=== PATIENT | male | born 2000 | race Caucasian/White ===

== ENCOUNTER 2023-04-18 01:42 | Inpatient (IN) | payer BC, SELFPAY ==
[2023-04-18 01:43] VITALS: BP 128/70; PULSE 56; RESP 16; TEMP 37.3; O2SAT 96; BMI 29.2
[2023-04-18 01:59] LABS: Add Urine Microscopic? NO; Charge for UA Resulting for Rev
[2023-04-18 02:02] LABS: Bilirubin Urine Neg (Negative); Blood Urine Neg (Negative); Glucose Urine UA Norm (Normal); Ketones Urine Negative (Negative); Leukocyte Esterase Urine Negative (Negative); Nitrate Urine Negative (Negative); Protein Urine Neg (Negative); Urine Appearance Clear (CLEAR); Urine Color Yellow (Yellow); Urobilinogen Urine Norm (Negative); pH Urine 6 (5-7)
[2023-04-18 02:08] LABS: Basophils # 0.1 10^3/uL (0.0-0.1); Basophils % 0.6 %; Eosinophils # 0.2 10^3/uL (0.0-0.8); Eosinophils % 1.5 %; Lymphocytes # 3.3 10^3/uL (0.8-4.8); Lymphocytes % 27.1 %; Mean Corpuscular Volume 85.7 fl (82-101); Mean Platelet Volume 10.7 fL (7.4-10.4); Monocytes % 7.8 %; Neutrophils # 7.73 10^3/uL (1.8-7.7); Neutrophils % 62.7 %; Nucleated Red Blood Cells % 0 %; Platelet Count 225 10^3/cmm (157-399); Red Blood Count 5.37 10^6/uL (3.85-5.65); Red Cell Distribution Width 13.2 % (12.1-15.1); White Blood Count 12.33 10^3/uL (3.29-11.43)
[2023-04-18 02:09] LABS: Amphetamines Screen Urine Negative (Negative); Barbiturates Screen Urine Negative (Negative); Benzodiazepines Screen Urine Negative (Negative); Cocaine Screen Urine Negative (Negative); Opiate Screen Urine Negative (Negative); PCP Screen Urine Negative (Negative); THC Screen Urine Negative (Negative)
--- NOTE | 2023-04-18 02:12 | ED.C_ITS ---
HPI - Psych General: Chief Complaint: Psychiatric Symptoms Stated Complaint: SI Time Seen by Provider: 04/18/23 01:48 History of Present Illness: Patient presents to the ER by EMS with complaints of suicidal ideation and self- harm. Patient states he put a knife to his arm and has a small scratch inside his left AC space. Patient says that he is afraid that he will actually go thr ough with that this. Patient is agreeable for inpatient treatment. Patient is not currently on any medications nor has he been in our system previously. Review of Systems General: Reports: 10 or more systems reviewed and unremarkable except in HPI and below Physical Exam Const: COMMON NORMALS: no acute distress, average body habitus, patient oriented x3, no limitations, healthy appearing, alert and well nourished HENMT: COMMON NORMALS: normocephalic, atraumatic, hearing grossly normal bilaterally, external ears normal, Normal external nose present and moist oral mucous membranes HEAD & SCALP: normocephalic and atraumatic NOSE: Normal external nose present EXTERNAL EAR: Yes external ears normal Eye: COMMON NORMALS: Equal, round and reactive pupils present, EOMs intact bilaterally, conjunctivae normal and no scleral icterus CONJUNCTIVA: Yes conjunctivae normal PUPIL: Yes Equal, round and reactive pupils present Neck/C-Spine: COMMON NORMALS: full ROM, no lymphadenopathy, supple, no meningeal signs, no JVD and Thyroid normal THYROID: Thyroid normal Lymph: LYMPHATIC: no lymphadenopathy noted Chest: COMMONS NORMALS: normal inspection of the chest and normal palpation of entire chest wall Resp: COMMON NORMALS: normal respiratory effort, No retractions, No use of accessory muscles and clear to auscultation bilaterally AUSCULTATION: clear to auscultation bilaterally Cardio: COMMON NORMALS: no JVD, regular rate, regular rhythm, S1 normal heart sound present, S2 normal heart sound present, No gallops present (Cardio), No clicks present (Cardio), No murmurs present (Cardio) and No rub (Cardio) RATE: regular rate RHYTHM: regular rhythm HEART SOUNDS: S1 normal heart sound present and S2 normal heart sound present GI: COMMON NORMALS: Normal to inspection, nondistended, normoactive bowel sounds present, Soft to palpation, non-tender, No hepatosplenomegaly present and no masses PALPATION: Yes Soft to palpation and Yes No hepatosplenomegaly present Neuro: COMMON NORMALS: patient oriented x3 SENSORIUM/ORIENTATION: Yes alert MENINGEAL SIGNS: Yes no meningeal signs Course Vital Signs: Vital signs: Vital Signs Temperature 99.1 F 04/18/23 01:43 Pulse Rate 56 L 04/18/23 01:43 Respiratory Rate 16 04/18/23 01:43 Blood Pressure 128/70 04/18/23 01:43 Pulse Oximetry 96 04/18/23 01:43 Oxygen Delivery Me thod Room Air 04/18/23 01:43 MDM - Psych Medical Decision Making Patient presents ER with suicidal ideation. Physical exam was performed lab work was obtained once medically cleared anticipate admission to the MPU for psychiatric evaluation Differential Diagnosis Likely suicidal ideation; Unlikely acute psychosis, chronic schizophrenia, bipolar disorder, depression or acute anxiety Medical Records I reviewed the patient's medical records. Lab Data I reviewed the patient's lab results. 04/18/23 02:00 04/18/23 02:00 Laboratory Results WBC 12.33 10^3/uL (3.29-11.43) H 04/18/23 02:00 RBC 5.37 10^6/uL (3.85-5.65) 04/18/23 02:00 Hgb 16.10 g/dL (11.27-16.99) 04/18/23 02:00 Hct 46.0 % (37-53) 04/18/23 02:00 MCV 85.7 fl (82-101) 04/18/23 02:00 MCH 30.0 pg (27-33) 04/18/23 02:00 MCHC 35.0 g/dL (30-55) 04/18/23 02:00 RDW 13.2 % (12.1-15.1) 04/18/23 02:00 Plt Count 225 10^3/cmm (157-399) 04/18/23 02:00 MPV 10.7 fL (7.4-10.4) H 04/18/23 02:00 Neut % (Auto) 62.7 % 04/18/23 02:00 Lymph % (Auto) 27.1 % 04/18/23 02:00 [place] % (Auto) 7.8 % 04/18/23 02:00 Eos % (Auto) 1.5 % 04/18/23 02:00 Baso % (Auto) 0.6 % 04/18/23 02:00 Neut # (Auto) 7.73 10^3/uL (1.8-7.7) H 04/18/23 02:00 Lymph # (Auto) 3.3 10^3/uL (0.8-4.8) 04/18/23 02:00 [place] # (Auto) 1.0 10^3/uL (0.2-0.9) H 04/18/23 02:00 Eos # (Auto) 0.2 10^3/uL (0.0-0.8) 04/18/23 02:00 Baso # (Auto) 0.1 10^3/uL (0.0-0.1) 04/18/23 02:00 Nucleated RBC % (auto) 0 % 04/18/23 02:00 Nucleated RBCs # 0.0 /100WBC 04/18/23 02:00 Sodium 143 mmol/L (136-145) 04/18/23 02:00 Potassium 3.6 mmol/L (3.5-5.1) 04/18/23 02:00 Chloride 105 mmol/L (98-107) 04/18/23 02:00 Carbon Dioxide 29 mmol/L (22-29) 04/18/23 02:00 Anion Gap 12.6 (5-19) 04/18/23 02:00 BUN 13 mg/dL (6-20) 04/18/23 02:00 Creatinine 0.8 mg/dL (0.7-1.2) 04/18/23 02:00 GFR Calculation 120.9 mL/min (90-130) 04/18/23 02:00 Glucose 92 mg/dL (65-115) 04/18/23 02:00 Calculated Osmolality 296 mOsm/kg (285-295) H 04/18/23 02:00 Calcium 9.3 mg/dL (8.5-10.5) 04/18/23 02:00 Total Bilirubin 0.2 mg/dL (0.15-1.2) 04/18/23 02:00 AST 19 U/L (0-40) 04/18/23 02:00 ALT 25 U/L (0-41) 04/18/23 02:00 Alkaline Phosphatase 70 U/L (40-130) 04/18/23 02:00 Total Protein 7.3 g/dL (6.6-8.7) 04/18/23 02:00 Albumin 4.6 g/dL (3.5-5.2) 04/18/23 02:00 Globulin 2.7 g/dL (1.3-4.6) 04/18/23 02:00 TSH 2.70 uIU/mL (0.27-4.20) 04/18/23 02:00 Urine Color Yellow (Yellow) 04/18/23 01:53 Urine Appearance Clear (CLEAR) 04/18/23 01:53 Urine pH 6 (5-7) 04/18/23 01:53 Ur Specific [place] 1.020 (1.005-1.030) 04/18/23 01:53 Urine Protein Neg (Negative) 04/18/23 01:53 Urine Glucose (UA) Norm (Normal) 04/18/23 01:53 Urine Ketones Negative (Negative) 04/18/23 01:53 Urine Blood Neg (Negative) 04/18/23 01:53 Urine Nitrate Negative (Negative) 04/18/23 01:53 Urine Bilirubin Neg (Negative) 04/18/23 01:53 Urine Urobilinogen Norm mg/dL (Negative) 04/18/23 01:53 Ur Leukocyte Esterase Negative (Negative) 04/18/23 01:53 Salicylates < 0.3 mg/dL (3-10) L 04/18/23 02:00 Urine Opiates Screen Negative ng/mL (Negative) 04/18/23 01:53 Acetaminophen < 5.0 ug/mL (10-30) L 04/18/23 02:00 Ur Barbiturates Screen Negative ng/mL (Negative) 04/18/23 01:53 Ur Phencyclidine Scrn Negative ng/mL (Negative) 04/18/23 01:53 Ur Amphetamines Screen Negative ng/mL (Negative) 04/18/23 01:53 U Benzodiazepines Scrn Negative ng/mL (Negative) 04/18/23 01:53 Urine Cocaine Screen Negative ng/mL (Negative) 04/18/23 01:53 U Marijuana (THC) Screen Negative ng/mL (Negative) 04/18/23 01:53 Ethyl Alcohol < 10 mg/dL (0-10) 04/18/23 02:00 Discharge Plan Discharge Patient Disposition: Admitted As Inpatient Clinical Impression: Suicidal ideation Condition: Stable Prescriptions: No Action No Known Home Medications Referrals: Francie Negro [Primary Care Provider] - Coding Level of Care Code ED Sighter for Katarina Wilkinson
[2023-04-18 02:40] LABS: Alanine Aminotransferase 25 U/L (0-41); Albumin Level 4.6 g/dL (3.5-5.2); Alkaline Phosphatase 70 U/L (40-130); Aspartate Amino Transferase 19 U/L (0-40); Blood Urea Nitrogen 13 mg/dL (6-20); Calcium 9.3 mg/dL (8.5-10.5); Carbon Dioxide 29 mmol/L (22-29); Chloride 105 mmol/L (98-107); Globulin 2.7 g/dL (1.3-4.6); Glomerular Filtration Rate 120.9 mL/min (90-130); Glucose 92 mg/dL (65-115); Osmolality Calculated 296 mOsm/kg (285-295); Sodium 143 mmol/L (136-145); Total Bilirubin 0.2 mg/dL (0.15-1.2); Total Protein 7.3 g/dL (6.6-8.7)
[2023-04-18 02:41] LABS: Acetaminophen < 5.0 ug/mL (10-30); Alcohol Level < 10 mg/dL (0-10); Salicylate < 0.3 mg/dL (3-10)
[2023-04-18 02:42] LABS: Anion Gap 12.6 (5-19); Potassium 3.6 mmol/L (3.5-5.1)
[2023-04-18 04:32] VITALS: BP 127/80; PULSE 76; RESP 18; TEMP 36.7; O2SAT 98
[2023-04-18 04:35] VITALS: RESP 16
[2023-04-18 05:09] VITALS: RESP 16
--- NOTE | 2023-04-18 05:29 | PC.NURSE ---
Pt arrived to NPU w/RN and security at side. Pt calm and cooperative w/assessment, however has delayed speech and thought processes. Denies drug or alcohol use. Monitoring continues.
--- NOTE | 2023-04-18 13:49 | P.NPUHP_ITS ---
Providers/Chief Complaint Admitting Physician: Víctor Jacobsen MD Primary Care Provider: Francie Negro Chief Complaint: SI HPI NPU History of Present Illness Chuy Collins is a 22 year old male with 1 previous history of inpatient psychiatric treatment who presented to the emergency department at [facility] with complaints of having thoughts of self injury as the patient had stated that he had placed a knife to his arm and had made a tiny nearly invisible scratch in his left AC space. The patient was admitted to the neuropsychiatric unit for further evaluation and treatment. Patient reports on interview that he has been treated for depression and anxiety before in the past. He reports that yesterday he had expressed having severe anxiety about starting a new job and reported that he felt overwhelmed by the this. He reports having interviewed last week for a job and reports that at the exact moment he turned in his paperwork for employment he was hired and was put into training. He reports that he had been overwhelmed as he reports that he has very specific and rigid adherence to rituals and this was out of character for him. He had reportedly recently lost his job last week. He states that he has been diagnosed with Asperger's disorder and often struggles with changes in routine. He reports that he struggles with being around other human beings and prefers to live in isolation. He reports that he is a picky eater and often struggles with execution as he often perseverates on specific topics and has a hard time getting certain thoughts out of his mind. He had reported that he would be ready to return to that job and states that he had been simply regretting having engaged in the action of putting a knife to his arm. He reports compliance with his current psychiatric medications. He has reported a past history of having anxiety in specific situations. He denies having any suicidal thoughts. He does report having occasional attacks of anxiety with shortness of breath and chest pain but states that it occurs very infrequently and has been managed on Vistaril. He denies any drug or alcohol use. Inpatient psychiatric history: He had been admitted to [facility] on the inpatient unit for 4 days approximately 1 year ago. Outpatient psychiatric history: He has been getting follow-up at [facility] psychiatrist in [facility] for therapy and for medication management. He reports no past history of suicide attempts otherwise. Current medications: Prozac 40 mg daily, Vistaril 50 mg as needed. Medical history: None Surgical history: None Allergies: No known drug allergies Drug and alcohol history: None Legal history: None Social history: Patient was raised by both his biological parents in [facility]. He has reported no history of learning delays although he had been d iagnosed with Asperger's disorder at the age of 11. He had endorsed some teasing and some alleged emotional trauma by his parents during his youth. He reported that he has 2 sisters 1 older and 1 younger. He states that he lives in [place] with his parents and his younger sister. He had reportedly dropped out of school in the 11th grade but obtained his GED later. He had reportedly lost a job approximately 2 weeks ago that he had been out for several months that he enjoyed. He reports currently having no intimate relationships. He reports an obsessive attraction to videogames and describes this is his primary restricted area of interest. Meds NPU Home Medications Medication Instructions Recorded Confirmed Last Taken Type No Known Home Medications 04/18/23 04/18/23 Unknown History Allergies Allergy/AdvReac Type Severity Reaction Status Date / Time No Known Allergies Allergy Verified 04/18/23 01:48 Mental Status Exam MSE Comments: Is a casually dressed white male who appeared in mild distress. His gait was adequate. His hygiene was fair. There is no evidence of any abnormal involuntary motor movements tics or tremors appreciated. He was alert and oriented to person place and time. His speech was monotone in quality but normal in rate and volume. His mood was described as okay. His affect was slightly restricted. His thought process was linear logical and goal-directed. His thought content showed no evidence of active homicidal or suicidal ideation. He did not appear to be responding to internal stimuli. There was no clear evidence of delusional thinking. His attention span appeared fair. His insight was fair. His judgment was fair. His impulse control appeared guarded at this time. His recent and remote memory were grossly intact. Vitals/I&O/Wt Last Vital Signs Temp 98.0 F 04/18/23 04:32 Pulse 76 04/18/23 04:32 Resp 16 04/18/23 05:09 BP 127/80 04/18/23 04:32 Pulse Ox 98 04/18/23 04:32 O2 Del Method Room Air 04/18/23 05:31 Weight last 48 hrs Weight 95.254 kg Data NPU 04/18/23 02:00 04/18/23 02:00 A&P Assessment and plan (1) Suicidal ideation: (2) Depression, unspecified: (3) Autism spectrum disorder: Plan 22-year-old male with autistic spectrum disorder and a past history of de pression and anxiety admitted with increased stress from a pending job leading to vague suicidal ideation with no significant injury. ?1. Encourage individual, group and milieu therapy. ?2.Recommend sober living treatment at the highest level of care to which the patient is willing to commit. 3.Continue q-15 minute checks for safety.? 4. Restart prozac and vistaril as prescribed. Involuntary Hold Information 96 Hour Hold: 96 Hour Involuntary Admission: No Attestations NPU Medical Necessity Statement*: ? Inpatient hospitalization is medically necessary and deemed to ?be ?the clinically appropriate intervention ?at this time.? We will monitor/initiate medications and make changes as indicated.? The patient will be in the hospital for over 2 midnights.? The patient?s likely length of stay is 2-3 days.. Coding Level of Care Code Acute Code for Chg Fwd Diagnoses Suicidal ideation R45.851 Depression, unspecified F32.A Autism spectrum disorder F84.0
[2023-04-18 14:00] VITALS: BP 131/74; PULSE 71; RESP 16; TEMP 36.6; O2SAT 97
--- NOTE | 2023-04-18 14:12 | W.PM.NPUDCS ---
Diagnoses at Discharge Discharge Diagnosis (1) Suicidal ideation: Status: Acute (2) Depression, unspecified: Status: Acute (3) Autism spectrum disorder: Status: Acute Reason for Visit Reason for Visit: SI Brief History: History of Present Illness Chuy Collins is a 22 year old male with 1 previous history of inpatient psychiatric treatment who presented to the emergency department at [facility] with complaints of having thoughts of self injury as the patient had stated that he had placed a knife to his arm and had made a tiny nearly invisible scratch in his left AC space.? The patient was admitted to the neuropsychiatric unit for further evaluation and treatment.? Patient reports on interview that he has been treated for depression and anxiety before in the past.? He reports that yesterday he had expressed having severe anxiety about starting a new job and reported that he felt overwhelmed by the this.? He reports having interviewed last week for a job and reports that at the exact moment he turned in his paperwork for employment he was hired and was put into training.? He reports that he had been overwhelmed as he reports that he has very specific and rigid adherence to rituals and this was out of character for him.? He had reportedly recently lost his job last week.? He states that he has been diagnosed with Asperger's disorder and often struggles with changes in routine.? He reports that he struggles with being around other human beings and prefers to live in isolation.? He reports that he is a picky eater and often struggles with execution as he often perseverates on specific topics and has a hard time getting certain thoughts out of his mind.? He had reported that he would be ready to return to that job and states that he had been simply regretting having engaged in the action of putting a knife to his arm.? He reports compliance with his current psychiatric medications.? He has reported a past history of having anxiety in specific situations.? He denies having any suicidal thoughts.? He does report having occasional attacks of anxiety with shortness of breath and chest pain but states that it occurs very infrequently and has been managed on Vistaril.? He denies any drug or alcohol use. Inpatient psychiatric history: He had been admitted to [facility] on the inpatient unit for 4 days approximately 1 year ago. Outpatient psychiatric history: He has been getting follow-up at [facility] psychiatrist in [facility] for therapy and for medication management.? He reports no past history of suicide attempts otherwise. Current medications: Prozac 40 mg daily, Vistaril 50 mg as needed. Medical history: None Surgical history: None Allergies: No known drug allergies Drug and alcohol history: None Legal history: None Social history: Patient was raised by both his biological parents in [facility].? He has reported no history of learning delays although he had been diagnosed with Asperger's disorder at the age of 11.? He had endorsed some teasing and some alleged emotional trauma by his parents during his youth.? He reported that he has 2 sisters 1 older and 1 younger.? He states that he lives in [place] with his parents and his younger sister.? He had reportedly dropped out of school in the 11th grade but obtained his GED later.? He had reportedly lost a job approximately 2 weeks ago that he had been out for several months that he enjoyed.? He reports currently having no intimate relationships.? He reports an obsessive attraction to videogames and describes this is his primary restricted area of interest. Hospital Course Hospital Course During the hospitalization, the patient had routine laboratory studies which were within normal limits except for a few outliers.? Additionally, there was a general medical evaluation which was also within normal limits and revealed no new acute processes.? At the time of discharge, lethality was denied and psychosis was resolving.? Mood and anxiety were well managed.? The patient endorsed a plan to avoid all drugs of abuse and follow up with the aftercare recommendations of the treatment team.? The patient was evaluated and deemed to be absent credible lethality and had achieved the maximum benefit from an inpatient hospitalization, and so was discharged.? Involuntary Hold Information 96 Hour Hold: 96 Hour Involuntary Admission: No Mental Status Exam MSE Comments: He is a casually dressed white male who appeared in mild distress. His gait was adequate. His hygiene was fair. There is no evidence of any abnormal involuntary motor movements tics or tremors appreciated. He was alert and oriented to person place and time. His speech was monotone in quality but normal in rate and volume. His mood was described as okay. His affect was slightly restricted. His thought process was linear logical and goal-directed. His thought content showed no evidence of active homicidal or suicidal ideation. He did not appear to be responding to internal stimuli. There was no clear evidence of delusional thinking. His attention span appeared fair. His insight was fair. His judgment was fair. His impulse control appeared guarded at this time. His recent and remote memory were grossly intact. Discharge Data Studies Completed and Pending: Laboratory Results WBC 12.33 10^3/uL (3. 29-11.43) H 04/18/23 02:00 RBC 5.37 10^6/uL (3.8 5-5.65) 04/18/23 02:00 Hgb 16.10 g/dL (11.27 -16.99) 04/18/23 02:00 Hct 46.0 % (37-53) 04/18/23 02:00 MCV 85.7 fl (82-101) 04/18/23 02:00 MCH 30.0 pg (27-33) 04/18/23 02:00 MCHC 35.0 g/dL (30-55) 04/18/23 02:00 RDW 13.2 % (12.1-15.1 ) 04/18/23 02:00 Plt Count 225 10^3/cmm (157 -399) 04/18/23 02:00 MPV 10.7 fL (7.4-10.4 ) H 04/18/23 02:00 Neut % (Auto) 62.7 % 04/18/23 02:00 Lymph % (Auto) 27.1 % 04/18/23 02:00 [place] % (Auto) 7.8 % 04/18/23 02:00 Eos % (Auto) 1.5 % 04/18/23 02:00 Baso % (Auto) 0.6 % 04/18/23 02:00 Neut # (Auto) 7.73 10^3/uL (1.8 -7.7) H 04/18/23 02:00 Lymph # (Auto) 3.3 10^3/uL (0.8- 4.8) 04/18/23 02:00 [place] # (Auto) 1.0 10^3/uL (0.2- 0.9) H 04/18/23 02:00 Eos # (Auto) 0.2 10^3/uL (0.0- 0.8) 04/18/23 02:00 Baso # (Auto) 0.1 10^3/uL (0.0- 0.1) 04/18/23 02:00 Nucleated RBC % (a uto) 0 % 04/18/23 02:00 Nucleated RBCs # 0.0 /100WBC 04/18/23 02:00 Sodium 143 mmol/L (136-1 45) 04/18/23 02:00 Potassium 3.6 mmol/L (3.5-5 .1) 04/18/23 02:00 Chloride 105 mmol/L (98-10 7) 04/18/23 02:00 Carbon Dioxide 29 mmol/L (22-29) 04/18/23 02:00 Anion Gap 12.6 (5-19) 04/18/23 02:00 BUN 13 mg/dL (6-20) 04/18/23 02:00 Creatinine 0.8 mg/dL (0.7-1. 2) 04/18/23 02:00 GFR Calculation 120.9 mL/min (90- 130) 04/18/23 02:00 Glucose 92 mg/dL (65-115) 04/18/23 02:00 Calculated Osmolal ity 296 mOsm/kg (285- 295) H 04/18/23 02:00 Calcium 9.3 mg/dL (8.5-10 .5) 04/18/23 02:00 Total Bilirubin 0.2 mg/dL (0.15-1 .2) 04/18/23 02:00 AST 19 U/L (0-40) 04/18/23 02:00 ALT 25 U/L (0-41) 04/18/23 02:00 Alkaline Phosphata se 70 U/L (40-130) 04/18/23 02:00 Total Protein 7.3 g/dL (6.6-8.7 ) 04/18/23 02:00 Albumin 4.6 g/dL (3.5-5.2 ) 04/18/23 02:00 Globulin 2.7 g/dL (1.3-4.6 ) 04/18/23 02:00 TSH 2.70 uIU/mL (0.27 -4.20) 04/18/23 02:00 Urine Color Yellow (Yellow) 04/18/23 01:53 Urine Appearance Clear (CLEAR) 04/18/23 01:53 Urine pH 6 (5-7) 04/18/23 01:53 Ur Specific [place] 1.020 (1.005-1.0 30) 04/18/23 01:53 Urine Protein Neg (Negative) 04/18/23 01:53 Urine Glucose (UA) Norm (Normal) 04/18/23 01:53 Urine Ketones Negative (Negati ve) 04/18/23 01:53 Urine Blood Neg (Negative) 04/18/23 01:53 Urine Nitrate Negative (Negati ve) 04/18/23 01:53 Urine Bilirubin Neg (Negative) 04/18/23 01:53 Urine Urobilinogen Norm mg/dL (Negat [place]) 04/18/23 01:53 Ur Leukocyte [place] ase Negative (Negati ve) 04/18/23 01:53 Salicylates < 0.3 mg/dL (3-10 ) L 04/18/23 02:00 Urine Opiates Scre en Negative ng/mL (N egative) 04/18/23 01:53 Acetaminophen < 5.0 ug/mL (10-3 0) L 04/18/23 02:00 Ur Barbiturates Sc reen Negative ng/mL (N egative) 04/18/23 01:53 Ur Phencyclidine S crn Negative ng/mL (N egative) 04/18/23 01:53 Ur Amphetamines Sc reen Negative ng/mL (N egative) 04/18/23 01:53 U Benzodiazepines Scrn Negative ng/mL (N egative) 04/18/23 01:53 Urine Cocaine Scre en Negative ng/mL (N egative) 04/18/23 01:53 U Marijuana (THC) Screen Negative ng/mL (N egative) 04/18/23 01:53 Ethyl Alcohol < 10 mg/dL (0-10) 04/18/23 02:00 Vitals: Last Vital Signs Temp 98.0 F 04/18/23 04:32 Pulse 76 04/18/23 04:32 Resp 16 04/18/23 05:09 BP 127/80 04/18/23 04:32 Pulse Ox 98 04/18/23 04:32 O2 Del Method Room Air 04/18/23 05:31 Discharge Plan Discharge Patient Disposition: Home Condition: Stable Prescriptions: No Action No Known Home Medications Discharge Orders: Discharge Order (Routine); Ordered 04/18/23 Ordered By: Royce Gary Referrals: Francie Negro [Primary Care Provider] - Discharge Diet: Usual diet Discharge Activity: Resume usual activity Patient Instructions: Opioid Safety Discharge Attestations NPU Time Spent in Discharge Care*: less than 30 min Specific Discharge Activities: Specific discharge activities: educating patient and documenting/other paperwork Coding Level of Care Code Acute g [facility] note Diagnoses Suicidal ideation R45.851 Depression, unspecified F32.A Autism spectrum disorder F84.0
[2023-04-18 14:50] VITALS: BP 127/80; PULSE 76; RESP 16; TEMP 36.7; O2SAT 98
[2023-04-18] MEDS: fluoxetine 20 mg Capsule 40 MG PO (15:04)
== END 2023-04-18 18:31 | disposition home or self-care (01) | DRG 881 ==
LOC: ER 03:35 → NP 04:50
PROVIDERS: Nurse Practitioner Family; Admitting Provider Psychiatry & Neurology Psychiatry; Emergency Provider Emergency Medicine; PCP Nurse Practitioner Family; Visit Provider Psychiatry & Neurology Psychiatry
DX: F32.A Depression, unspecified (principal); F84.5 Asperger's syndrome; R45.851 Suicidal ideations; F41.9 Anxiety disorder, unspecified
CPT/HCPCS: 80053; 80306; 80307; 81003; 84443; 85025; 97165; 99238; 99285